=== PATIENT | female | born 1960 | race African-American/Black ===

== ENCOUNTER 2017-11-24 09:49 | Observation (INO) ==
[2017-11-24 11:21] LABS: Basophils % 1.1 % (0.0-0.8); Eosinophils # 0.1 10*3/uL (0.0-0.87); Eosinophils % 2.7 % (0.00-10.9); Hematocrit 38.5 VOL% (35.7-47.0); Hemoglobin 12.6 GM/DL (12.0-16.0); Immature Granulocytes % 0.3 %; Immature Granulocytes Absolute 0.01 #; Lymphocytes # 1.5 10*3/uL (1.4-4.0); Lymphocytes % 39.6 % (21.3-54.2); Mean Corpuscular HGB Conc 32.7 GM/DL (32-36); Mean Corpuscular Hemoglobin 31 PG (27-34); Mean Platelet Volume 10.7 FL (9.6-12.0); Monocytes # 0.5 10*3/uL (0.11-0.8); Monocytes % 12.2 % (1.7-12.7); Neutrophils # 1.6 10*3/uL (1.4-7.4); Neutrophils % 44.1 % (38.7-73.9); Platelet Count 208 T/CUMM (130-400); Red Blood Count 4.01 MC/CUMM (3.8-5.5); White Blood Count 3.7 T/CUMM (4-12)
[2017-11-24 11:33] LABS: Albumin 3.4 G/DL (3.4-5.0); Bilirubin,Total 0.4 MG/DL (0.2-1.0); Calcium 9.2 MG/DL (8.5-10.1); Osmolality,Calculated 285.8 MOS/KG (273-304); Potassium 3.9 MMOL/L (3.5-5.1); Total Protein 7.1 G/DL (6.4-8.3)
[2017-11-24 13:02] LABS: PT Patient Result 10.8 SECS; Partial Thromboplastin Time 26.6 SECS (0-40)
[2017-11-24 23:11] LABS: Apearance,Urine CLEAR (Clear); Bilirubin,Urine Negative (Negative); Blood, Urine Small mg/dL (Negative); Glucose,Urine (UA) Negative (Negative); Ketones,Urine Negative (Negative); Nitrite,Urine Negative (Negative); Protein,Urine Negative; RBC,Urine 1 /HPF (0-4); Squamous Epithelial Cell,Urine Occasional /HPF (0-10); Urine Color Straw (Yellow); Urine Specific Gravity 1.014 (1.001-1.035); Urine Urobilinogen < 2.0 EU/DL (0.2-1.0); WBC,Urine 3 /HPF (0-6)
[2017-11-25 05:54] LABS: Basophils % 0.6 % (0.0-0.8); Eosinophils # 0.1 10*3/uL (0.0-0.87); Eosinophils % 1.3 % (0.00-10.9); Hemoglobin 12.3 GM/DL (12.0-16.0); Immature Granulocytes % 0.2 %; Immature Granulocytes Absolute 0.01 #; Lymphocytes # 1.1 10*3/uL (1.4-4.0); Lymphocytes % 21.6 % (21.3-54.2); Mean Corpuscular HGB Conc 34.2 GM/DL (32-36); Mean Corpuscular Hemoglobin 31 PG (27-34); Mean Corpuscular Volume 90.7 FL (87-102); Mean Platelet Volume 10.1 FL (9.6-12.0); Monocytes # 0.6 10*3/uL (0.11-0.8); Monocytes % 10.7 % (1.7-12.7); Neutrophils # 3.4 10*3/uL (1.4-7.4); Neutrophils % 65.6 % (38.7-73.9); Platelet Count 206 T/CUMM (130-400); Red Blood Count 3.97 MC/CUMM (3.8-5.5); Red Cell Distribution Width 12.6 % (9.3-17.3); White Blood Count 5.2 T/CUMM (4-12)
[2017-11-25 06:20] LABS: Calcium 8.1 MG/DL (8.5-10.1); Osmolality,Calculated 281.3 MOS/KG (273-304); Potassium 3.7 MMOL/L (3.5-5.1); Risk Ratio 2.75; Thyroid Stimulating Hormone 1.08 uIU/ml (0.358-3.74); VLDL CHOLESTEROL 17.6 MG/DL
[2017-11-25 11:45] VITALS: BP 109/71
== END 2017-11-25 13:04 | disposition home or self-care (01) ==
LOC: N.ED 09:49 → N.CL 14:17 → N.TELEN 14:17
PROVIDERS: ADMIT Internal Medicine Cardiovascular Disease; ATTEND Internal Medicine Cardiovascular Disease
PROC: CLCCHCL (ICD-10-PCS; 2017-11-24 14:45)

== ENCOUNTER 2019-09-12 19:06 | Inpatient (IN) ==
[2019-09-12] MEDS ORDERED: ONDANSETRON 4 MG/2 ML VIAL ONE (19:54)
[2019-09-12] MEDS ORDERED: PANTOPRAZOLE 40 MG VIAL IV ONE (19:54)
[2019-09-12] MEDS ORDERED: SODIUM CHLORIDE 0.9% 1,000 ML IV STA ×2 (19:58→21:38)
[2019-09-12] MEDS ORDERED: ONDANSETRON 4 MG/2 ML VIAL IV STA (19:58)
[2019-09-12] MEDS ORDERED: PANTOPRAZOLE 40 MG VIAL IV STA (19:58)
[2019-09-12 20:34] LABS: Basophils # 0.1 10*3/uL (0.0-0.2); Basophils % 0.8 % (0.0-0.8); Eosinophils # 0.1 10*3/uL (0.0-0.87); Eosinophils % 1.2 % (0.00-10.9); Hematocrit 38.7 VOL% (35.7-47.0); Hemoglobin 12.3 GM/DL (12.0-16.0); Immature Granulocytes % 0.6 %; Immature Granulocytes Absolute 0.04 #; Lymphocytes # 1.1 10*3/uL (1.4-4.0); Lymphocytes % 16.9 % (21.3-54.2); Mean Corpuscular HGB Conc 31.8 GM/DL (32-36); Mean Corpuscular Volume 95.8 FL (87-102); Mean Platelet Volume 10.5 FL (9.6-12.0); Monocytes % 13.3 % (1.7-12.7); Neutrophils % 67.2 % (38.7-73.9); Platelet Count 255 T/CUMM (130-400); Red Blood Count 4.04 MC/CUMM (3.8-5.5); Red Cell Distribution Width 14.3 % (9.3-17.3); White Blood Count 6.5 T/CUMM (4-12)
[2019-09-12 20:59] LABS: Alanine Aminotransferase 22 U/L (13-56); Albumin 3.6 G/DL (3.4-5.0); Alkaline Phosphatase 81 U/L (45-117); Amylase 126 U/L (25-115); Aspartate Amino Transferase 15 U/L (0-37); Blood Urea Nitrogen 176 MG/DL (7-18); Calcium 10.1 MG/DL (8.5-10.1); Estimated Glom Filtration Rate 4 ML/MIN; Glucose 100 MG/DL (74-106); Osmolality,Calculated 321.5 MOS/KG (273-304); Total Protein 9.3 G/DL (6.4-8.3)
[2019-09-12 21:00] LABS: Troponin I 0.088 NG/ML (0.00-0.045)
[2019-09-12] MEDS ORDERED: ALBUTEROL 2.5 MG/3 ML NEB RESP TX PRN (21:36)
[2019-09-12] MEDS: SODIUM CHLORIDE 0.9% 1,000 ML IV SCH (23:00)
[2019-09-13] MEDS: SODIUM BICARB INJ 100 MEQ in DEXTROSE 5% 1,000 ML IV SCH ×3 (00:51→11:43)
[2019-09-13] MEDS: SODIUM CHLORIDE 0.9% 1,000 ML IV SCH ×2 (06:52→20:07)
[2019-09-13 07:07] LABS: Basophils % 0.6 % (0.0-0.8); Eosinophils # 0.1 10*3/uL (0.0-0.87); Eosinophils % 1.7 % (0.00-10.9); Hematocrit 28.3 VOL% (35.7-47.0); Immature Granulocytes % 0.2 %; Immature Granulocytes Absolute 0.01 #; Lymphocytes # 0.8 10*3/uL (1.4-4.0); Lymphocytes % 17.5 % (21.3-54.2); Mean Corpuscular HGB Conc 32.2 GM/DL (32-36); Mean Corpuscular Volume 95.6 FL (87-102); Mean Platelet Volume 10.3 FL (9.6-12.0); Monocytes % 19.9 % (1.7-12.7); Neutrophils % 60.1 % (38.7-73.9); Red Cell Distribution Width 14.7 % (9.3-17.3); White Blood Count 4.6 T/CUMM (4-12)
[2019-09-13 07:21] LABS: Hemoglobin 9.1 GM/DL (12.0-16.0); Red Blood Count 2.96 MC/CUMM (3.8-5.5)
[2019-09-13 07:22] LABS: Platelet Count 172 T/CUMM (130-400)
[2019-09-13 07:42] LABS: Anisocytosis 1+; Band Neutrophils 2 % (0-10); Lymphocytes 13 % (20-55); Macrocytosis Slight; Platelet Estimate Normal; Segmented Neutrophils 65 % (50-85); Total Cells Counted 100
[2019-09-13] MEDS: ASPIRIN CHEW 81 MG TABLET PO SCH (08:27)
[2019-09-13] MEDS: PANTOPRAZOLE 40 MG TABLET PO SCH (08:27)
[2019-09-13 09:23] LABS: Apearance,Urine CLEAR (Clear); Bacteria,Urine Occasional /HPF (Few); Bilirubin,Urine Negative (Negative); Blood, Urine Small mg/dL (Negative); Glucose,Urine (UA) Negative (Negative); Ketones,Urine Negative (Negative); Mucus,Urine Occasional /LPF (Occasional); Nitrite,Urine Negative (Negative); Protein,Urine Negative; RBC,Urine <1 /HPF (0-4); Squamous Epithelial Cell,Urine Occasional /HPF (0-10); Urine Color Straw (Yellow); Urine Specific Gravity 1.011 (1.001-1.035); Urine Urobilinogen < 2.0 EU/DL (0.2-1.0); WBC,Urine 1 /HPF (0-6)
[2019-09-13 18:05] LABS: Albumin 2.6 G/DL (3.4-5.0); Bilirubin,Total 0.4 MG/DL (0.2-1.0); Calcium 8.5 MG/DL (8.5-10.1); Osmolality,Calculated 325.5 MOS/KG (273-304); Total Protein 6.5 G/DL (6.4-8.3)
[2019-09-13] MEDS ORDERED: SODIUM BICARBONATE 50 MEQ/50 ML VIAL IV ONE (19:42)
[2019-09-13] MEDS ORDERED: SODIUM BICARB INJ 150 MEQ in DEXTROSE 5% 1,000 ML IV SCH (19:42)
[2019-09-13] MEDS: DEXTROSE 5% NACL 0.45% 1,000 ML IV SCH (20:15)
[2019-09-13 20:26] LABS: Calcium 8.8 MG/DL (8.5-10.1); Osmolality,Calculated 320.3 MOS/KG (273-304)
[2019-09-14] MEDS ORDERED: ACETAMINOPHEN 325 MG TABLET PO PRN (00:42)
[2019-09-14 05:06] LABS: Basophils % 0.6 % (0.0-0.8); Eosinophils # 0.1 10*3/uL (0.0-0.87); Eosinophils % 2.3 % (0.00-10.9); Hematocrit 29.1 VOL% (35.7-47.0); Hemoglobin 9.2 GM/DL (12.0-16.0); Immature Granulocytes % 0.6 %; Immature Granulocytes Absolute 0.02 #; Lymphocytes # 0.7 10*3/uL (1.4-4.0); Lymphocytes % 21.2 % (21.3-54.2); Mean Corpuscular HGB Conc 31.6 GM/DL (32-36); Mean Platelet Volume 10.7 FL (9.6-12.0); Monocytes % 20.9 % (1.7-12.7); Neutrophils % 54.4 % (38.7-73.9); Platelet Count 144 T/CUMM (130-400); Red Blood Count 3.03 MC/CUMM (3.8-5.5); Red Cell Distribution Width 14.6 % (9.3-17.3); White Blood Count 3.5 T/CUMM (4-12)
[2019-09-14 05:32] LABS: Calcium 8.7 MG/DL (8.5-10.1); Osmolality,Calculated 314.3 MOS/KG (273-304)
[2019-09-14 06:17] LABS: Band Neutrophils 2 % (0-10); Eosinophils 3 % (0-10); Hypochromasia 1+; Lymphocytes 28 % (20-55); Segmented Neutrophils 51 % (50-85); Total Cells Counted 100
[2019-09-14 06:18] LABS: Macrocytosis Slight; Platelet Estimate Adequate
[2019-09-14] MEDS: DEXTROSE 5% NACL 0.45% 1,000 ML IV SCH ×2 (07:40→17:33)
[2019-09-14] MEDS: PANTOPRAZOLE 40 MG TABLET PO SCH (09:18)
[2019-09-14] MEDS: ASPIRIN CHEW 81 MG TABLET PO SCH (09:18)
[2019-09-14] MEDS: ONDANSETRON 4 MG/2 ML VIAL IV PRN (17:33)
[2019-09-15] MEDS: DEXTROSE 5% NACL 0.45% 1,000 ML IV SCH ×2 (02:36→11:14)
[2019-09-15 05:09] LABS: Basophils % 0.8 % (0.0-0.8); Eosinophils # 0.1 10*3/uL (0.0-0.87); Eosinophils % 1.8 % (0.00-10.9); Hematocrit 29.1 VOL% (35.7-47.0); Hemoglobin 9.3 GM/DL (12.0-16.0); Immature Granulocytes % 0.5 %; Immature Granulocytes Absolute 0.02 #; Lymphocytes % 25.6 % (21.3-54.2); Mean Corpuscular Volume 95.1 FL (87-102); Mean Platelet Volume 11.1 FL (9.6-12.0); Monocytes % 18.9 % (1.7-12.7); Neutrophils % 52.4 % (38.7-73.9); Platelet Count 144 T/CUMM (130-400); Red Blood Count 3.06 MC/CUMM (3.8-5.5); Red Cell Distribution Width 14.2 % (9.3-17.3); White Blood Count 3.9 T/CUMM (4-12)
[2019-09-15 05:25] LABS: Calcium 8.5 MG/DL (8.5-10.1)
[2019-09-15 05:35] LABS: Eosinophils 1 % (0-10); Hypochromasia 1+; Lymphocytes 18 % (20-55); Macrocytosis Slight; Ovalocytes Slight; Platelet Estimate Adequate; Segmented Neutrophils 61 % (50-85); Total Cells Counted 100
[2019-09-15] MEDS: ONDANSETRON 4 MG/2 ML VIAL IV PRN (05:55)
[2019-09-15] MEDS ORDERED: MAGNESIUM OXIDE 400 MG TABLET PO ONE (09:00)
[2019-09-15] MEDS: PANTOPRAZOLE 40 MG TABLET PO SCH (09:00)
[2019-09-15] MEDS: ASPIRIN CHEW 81 MG TABLET PO SCH (09:00)
[2019-09-15 12:11] VITALS: BP 152/78
== END 2019-09-15 12:33 | disposition home or self-care (01) | DRG 683 ==
LOC: N.ED 19:06 → SUATTDRO 21:36 → N.EDINP 21:36 → N.CC 09-13 00:12 → N.2E 09-14 05:10
PROVIDERS: ADMIT Family Medicine; ATTEND Family Medicine